=== PATIENT | female | born 1990 | race Caucasian/White ===

== ENCOUNTER → 2020-01-13 | Outpatient (REF) | payer BC ==
[2020-01-13 17:43] LABS: HEMATOCRIT 36.6 % (36.0-47.0); MEAN CORPUSCULAR HEMOGLOBIN 29.6 pg (27.0-33.0); MEAN CORPUSCULAR HGB CONC 32.8 g/dl (32.0-36.5); MEAN CORPUSCULAR VOLUME 90.4 fl (80.0-96.0); PLATELET COUNT, AUTOMATED 129 10^3/uL (150-450); RED BLOOD COUNT 4.05 10^6/uL (4.00-5.40); WHITE BLOOD COUNT 7.8 10^3/uL (4.0-10.0)
[2020-01-13 19:03] LABS: HEPATITIS C VIRUS ABY INDEX 0.1 INDEX (<0.8); HIV 1&2 SCREEN CENTAUR NEGATIVE (NEGATIVE)
[2020-01-13 20:28] LABS: CHLAMYDIA DNA AMPLIFICATION NEGATIVE (NEGATIVE); GC DNA AMPLIFICATION NEGATIVE (NEGATIVE)
== END ==
LOC: M PLALAB 15:12
PROVIDERS: ATTEND Advanced Practice Midwife
DX: Z34.02 Encounter for supervision of normal first pregnancy, second trimester (principal); Z3A.00 Weeks of gestation of pregnancy not specified

== ENCOUNTER → 2020-03-29 | Outpatient (CLI) | payer BC ==
[2020-03-29 15:36] LABS: HEMATOCRIT 37.2 % (36.0-47.0); HEMOGLOBIN 12.4 g/dl (12.0-15.5); MEAN CORPUSCULAR HEMOGLOBIN 30.8 pg (27.0-33.0); MEAN CORPUSCULAR HGB CONC 33.3 g/dl (32.0-36.5); MEAN CORPUSCULAR VOLUME 92.3 fl (80.0-96.0); PLATELET COUNT, AUTOMATED 115 10^3/uL (150-450); RED BLOOD COUNT 4.03 10^6/uL (4.00-5.40); WHITE BLOOD COUNT 9.4 10^3/uL (4.0-10.0)
== END ==
LOC: M PLALAB 11:38
PROVIDERS: ATTEND Advanced Practice Midwife
DX: Z34.02 Encounter for supervision of normal first pregnancy, second trimester (principal); Z36.89 Encounter for other specified antenatal screening

== ENCOUNTER → 2020-03-29 | Outpatient (CLI) | payer BC ==
--- NOTE | 2020-04-05 15:43 | REP ---
LIMITED OBSTETRICAL ULTRASOUND CLINICAL: Growth evaluation. FINDINGS: Ultrasound examination demonstrates a single live intrauterine in transverse lie with head to maternal right. Placenta noted anteriorly and grade 2 without placenta previa or abruption. Amniotic fluid volume is normal. Amniotic fluid index (RUDDY) equals 14.1 cm. Cervix measures 4.2 cm in length and appears closed. Gestational age by last menstrual period (LMP) 29 weeks 1 day with estimated date of delivery 06/13/2020. Gestational age by current measurements 27 weeks 3 days with estimated date of delivery 06/25/2020. heart rate 153 beats per minute. BIOMETRIC MEASUREMENTS: BPD 6.9 cm 27 weeks 5 days HC 25.8 cm 28 weeks 1 day AC 22.7 cm 27 weeks 1 day FL 5.0 cm 27 weeks 0 days HL 4.6 cm 27 weeks 3 days HC/AC ratio 1.14 Estimated weight 1036 grams 28th percentile Umbilical cord Doppler S/D ratio 2.8. IMPRESSION: Single live intrauterine in transverse lie demonstrating appropriate interval growth. MTDD
== END ==
LOC: M WHC 10:52
PROVIDERS: ATTEND Advanced Practice Midwife
DX: O32.2XX0 Maternal care for transverse and oblique lie, not applicable or unspecified (principal); Z36.89 Encounter for other specified antenatal screening; Z3A.29 29 weeks gestation of pregnancy

== ENCOUNTER → 2020-04-29 | Outpatient (CLI) | payer BC ==
--- NOTE | 2020-04-29 13:26 | REP ---
INDICATION: SIZE<DATES,GROWTH COMPARISON: 03/29/2020 TECHNIQUE: Transabdominal obstetrical ultrasound with color Doppler evaluation. FINDINGS: Examination demonstrates a single live intrauterine in cephalic presentation. motion is identified by technologist. Placenta is noted anterior and grade 3 without evidence for placenta previa or abruption. Amniotic fluid volume is normal. Cervix measures 2.9 cm in length and appears closed.. Gestational age by LMP 33 weeks 4 days with FACUNDO 06/13/2020. Gestational age by current measurements 31 weeks 5 days with FACUNDO 06/26/2020 Gestational age by 1st ultrasound 31 weeks 6 days with FACUNDO 06/25/2020. FHR equals 165 beats per minute. BPD: 7.6 cm 30 weeks 5 days HC: 29.1 cm 32 weeks 0 days AC: 27.8 cm 31 weeks 6 days FL: 6.2 cm 32 weeks 2 days HL: 5.5 cm 31 weeks 6 days HC/AC: 1.04 Estimated weight 1863 grams (40th percentile based on age by 1st ultrasound and current measurements). IMPRESSION: Single live intrauterine in cephalic presentation demonstrating appropriate estimated growth and weight when compared with 1st ultrasound. <Electronically signed by Ino Lieberman > 04/29/20 [id number]
== END ==
LOC: M WHC 12:12
PROVIDERS: ATTEND Advanced Practice Midwife
DX: O26.843 Uterine size-date discrepancy, third trimester (principal); Z36.89 Encounter for other specified antenatal screening; Z3A.31 31 weeks gestation of pregnancy

== ENCOUNTER → 2020-05-11 | Outpatient (CLI) | payer BC ==
[2020-05-11 14:12] LABS: HEMATOCRIT 41.1 % (36.0-47.0); HEMOGLOBIN 13.2 g/dl (12.0-15.5); MEAN CORPUSCULAR HEMOGLOBIN 29.5 pg (27.0-33.0); MEAN CORPUSCULAR HGB CONC 32.1 g/dl (32.0-36.5); MEAN CORPUSCULAR VOLUME 91.9 fl (80.0-96.0); PLATELET COUNT, AUTOMATED 121 10^3/uL (150-450); RED BLOOD COUNT 4.47 10^6/uL (4.00-5.40); WHITE BLOOD COUNT 9.9 10^3/uL (4.0-10.0)
== END ==
LOC: M PLALAB 10:23
PROVIDERS: ATTEND Specialist
DX: D69.6 Thrombocytopenia, unspecified (principal)

== ENCOUNTER → 2020-05-18 | Outpatient (REF) | payer BC | LOC: M SFHCWAGY 13:08 | PROVIDERS: ATTEND Advanced Practice Midwife | DX: Z34.03 Encounter for supervision of normal first pregnancy, third trimester (principal); Z3A.00 Weeks of gestation of pregnancy not specified ==

== ENCOUNTER → 2020-05-23 | Outpatient (CLI) | payer BC ==
--- NOTE | 2020-05-24 04:14 | REP ---
INDICATION: UTERINE SIZE DATE DISCREPANCY,GROWTH COMPARISON: 04/29/2020 TECHNIQUE: Transabdominal obstetrical ultrasound with color Doppler evaluation. FINDINGS: Examination demonstrates a single live intrauterine in cephalic presentation. motion is identified by technologist. Placenta is noted anterior and grade 3 without evidence for placenta previa or abruption. Amniotic fluid volume is normal. Cervix measures 3.1 cm in length and appears closed.. Gestational age by LMP 37 weeks 0 days with FACUNDO 06/13/2020. Gestational age by current measurements 34 weeks 3 days with FACUNDO 07/01/2020 Gestational age by 1st U/S 35 weeks 2 days with FACUNDO 06/25/2020. FHR equals 136 beats per minute. BPD: 8.4 cm is 33 weeks 4 days HC: 31.2 cm there is 34 weeks 6 days AC: 32.0 cm 35 weeks 6 days FL: 6.6 cm 33 weeks 5 days HL: 5.8 cm 33 weeks 6 days HC/AC: 0.98 Estimated weight 2564 grams (12thpercentile). RUDDY: 11.7 cm (7.5-24.4) IMPRESSION: Single live advanced gestation in cephalic presentation demonstrating appropriate estimated weight and interval growth as compared to 1st ultrasound. <Electronically signed by Ino Lieberman > 05/24/20 [id number]
== END ==
LOC: M WHC 12:09
PROVIDERS: ATTEND Advanced Practice Midwife
DX: O26.843 Uterine size-date discrepancy, third trimester (principal); Z3A.35 35 weeks gestation of pregnancy

== ENCOUNTER → 2020-06-06 | Outpatient (CLI) | payer BC ==
--- NOTE | 2020-06-06 21:22 | REP ---
INDICATION: SIZE DISCREPANCY,GROWTH COMPARISON: 05/23/2020 TECHNIQUE: Transabdominal obstetrical ultrasound with color Doppler evaluation. FINDINGS: Examination demonstrates a single live intrauterine in cephalic presentation. motion is identified by technologist. Placenta is noted anterior and grade 3 without evidence for placenta previa or abruption. Amniotic fluid volume is normal. Cervix measures 3.2 cm in length and appears closed.. Gestational age by LMP 39 weeks 0 days with FACUNDO 06/13/2020. Gestational age by current measurements 35 weeks 6 days with FACUNDO 07/05/2020. FHR equals 139 beats per minute. BPD: 8.9 cm 36 weeks 0 days HC: 31.3 cm 35 weeks 0 days AC: 32.8 cm 36 weeks 5 days FL: 7.0 cm 35 weeks 6 days HL: 6.2 cm 36 weeks 0 days HC/AC: 0.95 Estimated weight 2885 grams (11th percentile based on age by LMP at 39 weeks 0 days). RUDDY: 17.8 cm IMPRESSION: Single live advanced gestation in cephalic presentation. Estimated weight is within lower normal range. Amniotic fluid index is normal. <Electronically signed by Ino Lieberman > 06/06/20 [id number]
== END ==
LOC: M WHC 13:24
PROVIDERS: ATTEND Obstetrics & Gynecology
DX: Z34.83 Encounter for supervision of other normal pregnancy, third trimester (principal); Z36.89 Encounter for other specified antenatal screening; Z3A.39 39 weeks gestation of pregnancy

== ENCOUNTER 2020-06-14 10:10 | Inpatient (IN) | payer BC ==
[~2020-06-14] VITALS: Ht 160 cm; Wt 78.6 kg
[2020-06-14] VITALS (18 sets, daily range): BP systolic 91–143; BP diastolic 52–89
[2020-06-14] MEDS ORDERED: PRENTAB9 PO (10:28)
[2020-06-14] MEDS ORDERED: LACTATED RINGER'S 1000 ML IV STA (10:34)
--- NOTE | 2020-06-14 10:55 | HPEPDOC ---
Obstetrical History & Physical General Date of Admission Jun 14, 2020 at 10:23 History of Present Illness Carmen Davis is a 29 year old female at 39 weeks gestation that presented to L&D for a labor check. She complained of contractions since 8am that have increased in intensity. On exam she is 5cm dilated and is being admitted for active labor. Chief Complaint: Contractions, term Information Provided By: Patient Age: 29 : 2 Term: 0 Pre-term: 0 Abortions: 1 Livin Care Care: Good Care Dating Final EDC: Jun 21, 2020 Final EDC by: 2nd trimester (US) Past Medical History Past Obstetrical History : Past Obstetrical History: Primgravida [employer] History: Theraputic Past Medical History Medical History Pt is following a therapeutic at age 17. Currently 39 weeks with second . Surgical History: Denies/None Family History Significant Family History: No pertinent family hx Social History Psychosocial History: No pertinent psych hx * Smoker: non-smoker Alcohol: Denies Drugs: denies Imunizations Tdap status: declined Influenza Status: declined Allergies Coded Allergies: No Known Allergies (Verified Allergy, Unknown, 06/14/20) Medications Scheduled No.137/Iron/Folic Acd ( Vitamin Tablet) 1 Each Tablet, 1 TAB PO DAILY Physical Examination Physical Examination GENERAL: Alert and oriented times three. BREAST: . ABDOMEN: Gravid and non-tender to touch. FETUS: Is vertex (VTX) by sterile vaginal examination (SVE), fetus is vertex (VTX) by Clint. HEART RATE: Regular rate and rhythm. LUNGS: Clear to auscultation (CTA). EXTREMITIES: No edema. Pertinent Laboratoy Data Blood Type: O+ Rapid Plasma Reagin: Nonreactive Rubella: Immune Chlamydia/Gonorrhea: Negative Group B Streptococcus: Negative Vaginal Examination Dilation: 5 cm Effacement: 100% Station: -1 Cervical Consistency: Soft Cervical Position: Middle Presentation: Cephalic presentation Assessment Variability: Moderate Accelerations: Positive Decelerations: None Tocometer Contractions: Yes Frequency: regular Duration: less than 60 seconds Assessment/Plan Assessment Carmen Davis is a 29-year-old (G) 2 para (P) 0-0-1-0 at 39 weeks by 23+2-week ultrasound. Presents to Labor and Delivery (L&D) complaining of contractions since 8am. On sterile vaginal exam the pt was 5cm dilated and some bloody discharge was noted. Pt will be admitted to L&D for labor at term. Plan Admit and orient. Financial Aid Coordinator and consent. Diet: clear liquids. Group B Streptococcus (GBS) [negative]. Labs and intravenous (IV) per unit protocol. Counseled on Pitocin and induction of labor (IOL). Anticipate normal spontaneous delivery (). C-S as appropriate. MUKESH SHANKS OMS-3 Jun 14, 2020 10:55
[2020-06-14 11:08] LABS: HEMATOCRIT 45.3 % (36.0-47.0); HEMOGLOBIN 15.1 g/dl (12.0-15.5); MEAN CORPUSCULAR HEMOGLOBIN 29.3 pg (27.0-33.0); MEAN CORPUSCULAR HGB CONC 33.3 g/dl (32.0-36.5); PLATELET COUNT, AUTOMATED 133 10^3/uL (150-450); RED BLOOD COUNT 5.15 10^6/uL (4.00-5.40)
[2020-06-14] MEDS ORDERED: OXYTOCIN DRIP 30 UNITS in IV 1 EA IV SCH (12:00)
[2020-06-14] MEDS ORDERED: FENTANYL 2MCG/ML ROPIVACAINE 0.2% IN 0.9% NACL 100ML IVBAG As Ordered ONE (12:09)
[2020-06-14] MEDS: LR 1,000 ML IV SCH ×2 (12:13→18:07)
[2020-06-14] MEDS: FENTANYL/ROPIVACAINE/NACL BAG 100 ML EPIDURAL SCH ×2 (12:34→20:19)
[2020-06-14] MEDS ORDERED: EPIDURAL/PCA KEYS XX PRN (13:30)
[2020-06-14] MEDS ORDERED: NALOXONE INJ 0.4MG/1ML VIAL (J2310 PER 1MG) IV PRN (13:30)
[2020-06-14] MEDS ORDERED: LACTATED RINGER'S 1000 ML IV PRN (13:30)
[2020-06-14] MEDS ORDERED: ONDANSETRON 4MG/2ML VIAL IV PRN ×2 (13:30→23:00)
[2020-06-14] MEDS ORDERED: diphenhydrAMINE 50MG/ML VIAL (J1200) IV PRN (13:30)
[2020-06-14] MEDS ORDERED: REFRIGERATOR IV KEYS XX PRN (13:30)
[2020-06-14] MEDS ORDERED: ePHEDrine SULFATE 25 MG/5 ML(5MG/ML) SYRINGE IV PRN (13:30)
[2020-06-14] MEDS ORDERED: EPIDURAL COMMENT XX SCH (13:30)
[2020-06-14 22:47] LABS: CORD GAS HCO3 V 15.8 MEQ/L; CORD GAS O2 SAT V 59.2 %; CORD GAS PH V 7.273 UNITS; CORD GAS PO2 V 26.6 mmHg; CORD GAS SBC V 15.9 MEQ/L; CORD GAS TCO2 V 16.9 MEQ/L
[2020-06-14 22:54] LABS: CORD GAS ABE A -12.3; CORD GAS HCO3 A 15.2 MEQ/L; CORD GAS PCO2 A 40.4 mmHg; CORD GAS PH A 7.194 UNITS; CORD GAS PO2 A 25.3 mmHg; CORD GAS SBC A 14.2 MEQ/L; CORD GAS TCO2 A 16.5 MEQ/L
[2020-06-14] MEDS ORDERED: BENZOCAINE 20% HEMORRHOIDAL OINTMENT 28GM TUBE TOP PRN (23:00)
[2020-06-14] MEDS ORDERED: LIDOCAINE 1% MDV 20ML VIAL INFIL ONE (23:00)
[2020-06-14] MEDS ORDERED: RHOGAM 300 MCG (1500 IU) INJ (J2790) IM SCH (23:00)
[2020-06-14] MEDS ORDERED: ACETAMINOPHEN TAB 650MG DOSE (2X325MG) PO PRN (23:00)
[2020-06-14] MEDS ORDERED: OXYTOCIN DRIP 30 UNITS in IV 1 EA IV ONE (23:00)
[2020-06-14] MEDS ORDERED: IBUPROFEN 600MG TAB PO PRN (23:00)
[2020-06-14] MEDS ORDERED: METHYLERGONOVINE MALEATE 0.2 MG TAB PO PRN (23:00)
[2020-06-14] MEDS ORDERED: DOCUSATE SODIUM 100MG CAPSULE PO PRN (23:00)
[2020-06-14] MEDS ORDERED: MEASLES,MUMPS,RUBELLA VACCINE INJ (MMR-II) (90707) SC SCH (23:00)
--- NOTE | 2020-06-14 23:46 | DNPDOC ---
[facility] Delivery Note Delivery Note DATE OF DELIVERY: June 14, 2020 PREDELIVERY DIAGNOSIS: 39-0/7 weeks' gestation and labor. POST DELIVERY DIAGNOSIS: Delivered. PROCEDURE: Spontaneous vaginal delivery. SENIOR PRODUCT DEVELOPMENT SCIENTIST: Dr. Frida Lara MD ANESTHESIA: epidural. ESTIMATED BLOOD LOSS: 300 mL. FINDINGS: 6 pound 7 ounce female infant, Score 6/8. DELIVERY SUMMARY: Patient is a 29-year-old 1 now para 1 who was admitted to labor and delivery for labor After a 1 hour second stage she had a spontaneous vaginal delivery of a 6 lbs. 7 oz. female infant, 's 6 and 8. There was no nuchal cord. Shoulders delivered with ease. The was handed to the mother. The cord was doubly clamped and cut. The placenta delivered spontaneously and appeared to be intact. The patient received IV Pitocin immediately after delivery of the placenta. A left labial laceration was repaired under local anesthesia with 3-0 chromic in the usual fashion. Sponge and needle counts were correct. FRIDA LARA MD Jun 14, 2020 23:46
[2020-06-15 01:18] VITALS: BP 114/58
[2020-06-15 06:30] VITALS: BP 112/56
[2020-06-15] MEDS: PRENATAL VITAMINS CHEWABLE TABLET PO SCH (08:58)
[2020-06-15] MEDS: ACETAMINOPHEN 500 MG TAB PO PRN (08:58)
[2020-06-15] MEDS: IBUPROFEN 800 MG TAB PO PRN ×2 (10:13→22:51)
[2020-06-15 18:00] VITALS: BP 139/69
[2020-06-16 06:00] VITALS: BP 119/70
[2020-06-16] MEDS: PRENATAL VITAMINS CHEWABLE TABLET PO SCH (08:10)
[2020-06-16 09:41] VITALS: BP 112/53
[2020-06-16] MEDS: IBUPROFEN 800 MG TAB PO PRN (14:34)
[2020-06-16] MEDS: ACETAMINOPHEN 500 MG TAB PO PRN (19:15)
== END 2020-06-16 19:20 | disposition home or self-care (01) | DRG 560 ==
LOC: M LDO 10:10 → M LDI 10:23 → M OBS 06-15 01:17
PROVIDERS: ADMIT Specialist; ATTEND Specialist
PROC: 10E0XZZ Delivery of Products of Conception, External Approach (ICD-10-PCS; principal; 2020-06-14)
PROC: 0HQ9XZZ Repair Perineum Skin, External Approach (ICD-10-PCS; 2020-06-14)
DX: O70.0 First degree perineal laceration during delivery (principal); Z3A.39 39 weeks gestation of pregnancy; Z37.0 Single live birth

== ENCOUNTER → 2022-04-19 | Outpatient (CLI) | payer BC ==
[~2022-04-19] MED LIST: PRENTAB9 PO
[2022-04-19 13:54] LABS: HEMATOCRIT 38.8 % (36.0-47.0); MEAN CORPUSCULAR HEMOGLOBIN 29.2 pg (27.0-33.0); MEAN CORPUSCULAR HGB CONC 33.5 g/dl (32.0-36.5); MEAN CORPUSCULAR VOLUME 87.2 fl (80.0-96.0); PLATELET COUNT, AUTOMATED 138 10^3/uL (150-450); RED BLOOD COUNT 4.45 10^6/uL (4.00-5.40); WHITE BLOOD COUNT 4.7 10^3/uL (4.0-10.0)
[2022-04-19 17:08] LABS: GC DNA AMPLIFICATION NEGATIVE (NEGATIVE)
[2022-04-19 18:11] LABS: HEPATITIS C VIRUS ABY INDEX 0.1 INDEX (<0.8); HIV 1&2 SCREEN CENTAUR NEGATIVE (NEGATIVE)
== END ==
LOC: M PLALAB 10:43
PROVIDERS: ATTEND Specialist
DX: Z36.9 Encounter for antenatal screening, unspecified (principal); Z3A.12 12 weeks gestation of pregnancy

== ENCOUNTER → 2022-06-05 | Outpatient (CLI) | payer BC | LOC: M WHC 08:02 | PROVIDERS: ATTEND Specialist | DX: Z34.82 Encounter for supervision of other normal pregnancy, second trimester (principal); Z3A.19 19 weeks gestation of pregnancy ==

== ENCOUNTER → 2022-07-27 | Outpatient (CLI) | payer BC | LOC: M WHC 08:13 | PROVIDERS: ATTEND Obstetrics & Gynecology | DX: O26.849 Uterine size-date discrepancy, unspecified trimester (principal); Z3A.26 26 weeks gestation of pregnancy ==

== ENCOUNTER → 2022-07-31 | Outpatient (CLI) | payer BC ==
[2022-07-31 14:04] LABS: HEMOGLOBIN 12.9 g/dl (12.0-15.5); MEAN CORPUSCULAR HEMOGLOBIN 29.2 pg (27.0-33.0); MEAN CORPUSCULAR HGB CONC 32.3 g/dl (32.0-36.5); MEAN CORPUSCULAR VOLUME 90.5 fl (80.0-96.0); PLATELET COUNT, AUTOMATED 150 10^3/uL (150-450); RED BLOOD COUNT 4.42 10^6/uL (4.00-5.40); WHITE BLOOD COUNT 8.8 10^3/uL (4.0-10.0)
[2022-07-31 15:47] LABS: GC DNA AMPLIFICATION NEGATIVE (NEGATIVE)
== END ==
LOC: M PLALAB 09:34
PROVIDERS: ATTEND Advanced Practice Midwife
DX: Z34.92 Encounter for supervision of normal pregnancy, unspecified, second trimester (principal)

== ENCOUNTER → 2022-09-25 | Outpatient (REF) | payer BC | LOC: M SFHCWAGY 10:17 | PROVIDERS: ATTEND Specialist | DX: Z34.83 Encounter for supervision of other normal pregnancy, third trimester (principal) ==

== ENCOUNTER 2022-10-25 04:54 | Inpatient (IN) | payer BC ==
[~2022-10-25] VITALS: Ht 162.6 cm; Wt 80.9 kg
[2022-10-25] MEDS ORDERED: HOME MED LIST COMPLETE! XX SCH (05:20)
[2022-10-25] MEDS ORDERED: OXYTOCIN INJ 10UNITS/ML 1ML VIAL As Ordered ONE ×2 (05:27→06:08)
[2022-10-25] MEDS ORDERED: LIDOCAINE 1% MDV 20ML VIAL As Ordered ONE (05:51)
[2022-10-25] MEDS ORDERED: METHYLERGONOVINE MALEATE 0.2MG/ML 1ML VIAL IM PRN (06:25)
[2022-10-25] MEDS ORDERED: LIDOCAINE 1% MDV 20ML VIAL INFIL PRN (06:25)
[2022-10-25] MEDS: OXYTOCIN INJ 10UNITS/ML 1ML VIAL IM PRN (06:29)
[2022-10-25] MEDS ORDERED: IBUPROFEN 800 MG TAB PO PRN (06:40)
[2022-10-25] MEDS ORDERED: LIDOCAINE 1% MDV 20ML VIAL SC ONE (06:40)
[2022-10-25] MEDS ORDERED: ACETAMINOPHEN TAB 650MG DOSE (2X325MG) PO PRN (06:40)
[2022-10-25] MEDS ORDERED: RHOGAM 300MCG (1500IU) INJ IM SCH (06:40)
[2022-10-25] MEDS ORDERED: METHYLERGONOVINE MALEATE 0.2 MG TAB PO PRN (06:40)
[2022-10-25] MEDS ORDERED: IBUPROFEN 600MG TAB PO PRN (06:40)
[2022-10-25] MEDS ORDERED: DIBUCAINE 1% OINTMENT 30GM TOP PRN (06:40)
[2022-10-25] MEDS ORDERED: OXYTOCIN INJ 10UNITS/ML 1ML VIAL IM ONE (06:40)
[2022-10-25 07:11] LABS: HEMATOCRIT 42.9 % (36.0-47.0); HEMOGLOBIN 14.5 g/dl (12.0-15.5); MEAN CORPUSCULAR HEMOGLOBIN 29.7 pg (27.0-33.0); MEAN CORPUSCULAR HGB CONC 33.8 g/dl (32.0-36.5); MEAN CORPUSCULAR VOLUME 87.9 fl (80.0-96.0); RED BLOOD COUNT 4.88 10^6/uL (4.00-5.40); WHITE BLOOD COUNT 10.9 10^3/uL (4.0-10.0)
[2022-10-25 07:19] LABS: PLATELET COUNT, AUTOMATED 98 10^3/uL (150-450)
[2022-10-25 07:40] VITALS: BP 114/69
[2022-10-25] MEDS ORDERED: METHYLERGONOVINE MALEATE 0.2MG/ML 1ML VIAL ONE (07:40)
[2022-10-25] MEDS: PRENATAL VITAMINS CHEWABLE TABLET PO SCH (08:39)
[2022-10-25] MEDS: ACETAMINOPHEN 500 MG TAB PO PRN ×3 (08:40→20:53)
[2022-10-25 09:25] VITALS: BP 129/62
[2022-10-25] MEDS: DOCUSATE SODIUM 100MG CAPSULE PO PRN (14:40)
[2022-10-25 18:00] VITALS: BP 99/55
[2022-10-26 06:30] VITALS: BP 112/82
[2022-10-26] MEDS: PRENATAL VITAMINS CHEWABLE TABLET PO SCH (07:40)
[2022-10-26] MEDS: ACETAMINOPHEN 500 MG TAB PO PRN (07:40)
[2022-10-26] MEDS: DOCUSATE SODIUM 100MG CAPSULE PO PRN (07:40)
[2022-10-27] MEDS ORDERED: MEASLES,MUMPS,RUBELLA VACCINE INJ (MMR-II) SC.IMMUN ONE (09:00)
== END 2022-10-26 12:13 | disposition home or self-care (01) | DRG 560 ==
LOC: M LDO 04:54 → M LDI 05:39 → M OBS 09:32
PROVIDERS: ADMIT Advanced Practice Midwife; ATTEND Advanced Practice Midwife
PROC: 10E0XZZ Delivery of Products of Conception, External Approach (ICD-10-PCS; principal; 2022-10-25)
PROC: 0UQMXZZ Repair Vulva, External Approach (ICD-10-PCS; 2022-10-25)
DX: O48.0 Post-term pregnancy (principal); O71.82 Other specified trauma to perineum and vulva; Z3A.40 40 weeks gestation of pregnancy; Z37.0 Single live birth

== ENCOUNTER → 2023-12-13 | Outpatient (REF) | payer BC, MEDICAID ==
[2023-12-17 12:43] LABS: HPV APTIMA Not Detected (Not Detected)
== END ==
LOC: M SFHCWAGY 13:22
PROVIDERS: ATTEND Advanced Practice Midwife
DX: Z12.4 Encounter for screening for malignant neoplasm of cervix (principal)